=== PATIENT | female | born 1980 | race Caucasian/White ===

== ENCOUNTER → 2017-07-31 13:21 | Outpatient (CLI) | payer BC, SELFPAY ==
[2017-08-06 15:45] LABS: HPV Reflexed? NOT INDICATED
== END ==
PROVIDERS: Visit Provider Obstetrics & Gynecology
DX: Z12.4 Encounter for screening for malignant neoplasm of cervix (principal)
CPT/HCPCS: 88175; G0145

== ENCOUNTER → 2019-11-25 16:07 | Outpatient (CLI) | payer BC, SELFPAY ==
[2019-11-25 18:04] LABS: Thyroid Stim Hormone (TSH) 1.27 uIU/mL (0.358-3.74)
[2019-11-30 17:33] LABS: HPV Reflexed? NOT INDICATED
== END ==
PROVIDERS: Visit Provider Obstetrics & Gynecology
DX: Z12.4 Encounter for screening for malignant neoplasm of cervix (principal); R63.5 Abnormal weight gain
CPT/HCPCS: 36415; 84443; 88175; G0145

== ENCOUNTER → 2020-01-18 14:42 | Outpatient (CLI) | payer BC, SELFPAY ==
--- NOTE | 2020-01-18 14:45 | BI_ITS ---
MAMMOGRAPHY - BILATERAL SCREENING REASON FOR EXAM: Female, 39 years old. Routine annual screening examination. PERTINENT HISTORY: Aunt with breast cancer. TECHNIQUE: Digital bilateral breast fartun (3D mammographic acquisition) in the CC and MLO projections. 2-D mediolateral oblique (MLO) and craniocaudad (CC) views of both breasts were obtained. CAD: Full Field Digital Mammography with Computer Added Detection was performed. COMPARISON: None. Baseline examination. FINDINGS: Breast Composition: The breasts are heterogeneously dense, which may obscure small masses. There are no dominant masses or suspicious calcifications. No other significant abnormalities are identified. BI/SCREEN MAMM (CAD) W/FARTUN BILAT IMPRESSION: Stable bilateral screening mammogram. Yearly follow-up mammogram recommended. (A) ASSESSMENT CATEGORY: Approximately 10% of breast cancers are not detected by mammography. A normal mammogram should not delay biopsy of a clinically suspicious abnormality. [id number] Electronically Signed: Herve Inman, at 15:41 EDT , Service support ,
== END ==
PROVIDERS: Referring Provider Obstetrics & Gynecology; Visit Provider Obstetrics & Gynecology
DX: Z12.31 Encounter for screening mammogram for malignant neoplasm of breast (principal); Z80.3 Family history of malignant neoplasm of breast
CPT/HCPCS: 77063; 77067

== ENCOUNTER 2020-07-22 16:18 | Outpatient (RCR) | payer OTHER, SELFPAY | END 2020-10-04 23:59 | LOC: IMMUN 16:18 | PROVIDERS: Visit Provider Family Medicine | DX: Z23 Encounter for immunization (principal) | CPT/HCPCS: 0001A; 0002A; 91300 ==

== ENCOUNTER → 2021-01-19 10:40 | Outpatient (CLI) | payer OTHER, SELFPAY ==
--- NOTE | 2021-01-19 10:42 | BI_ITS ---
MAMMOGRAPHY - BILATERAL SCREENING REASON FOR EXAM: Female, 40 years old. Routine annual screening examination. PERTINENT HISTORY: Aunt with breast cancer. TECHNIQUE: Digital bilateral breast fartun (3D mammographic acquisition) in the CC and MLO projections. 2-D mediolateral oblique (MLO) and craniocaudad (CC) views of both breasts were obtained. CAD: Full Field Digital Mammography with Computer Added Detection was performed. COMPARISON: Comparison is made with prior study dated 01/18/2020. FINDINGS: Breast Composition: The breasts are heterogeneously dense, which may obscure small masses. There are no dominant masses or suspicious calcifications. No other significant abnormalities are identified. There has been no significant change since the prior study. BI/SCRN MAMM (CAD)W/FARTUN BILAT IMPRESSION: Stable bilateral screening mammogram. Yearly follow-up mammogram recommended. (A) ASSESSMENT CATEGORY: BIRADS Category 1: Negative. A letter regarding these results will be sent to the patient by the facility within 30 days. Approximately 10% of breast cancers are not detected by mammography. A normal mammogram should not delay biopsy of a clinically suspicious abnormality. [id number] Electronically Signed: Herve Inman MD at 12:04 EDT , Service support ,
== END ==
PROVIDERS: Visit Provider Obstetrics & Gynecology
DX: Z12.31 Encounter for screening mammogram for malignant neoplasm of breast (principal)
CPT/HCPCS: 77063; 77067

== ENCOUNTER → 2022-02-02 | Outpatient (CLI) | payer BC, SELFPAY ==
[2022-02-08 16:53] LABS: HPV APTIMA, High Risk Negative
== END | disposition home or self-care (01) ==
LOC: LABSPEC 15:21
PROVIDERS: Visit Provider Obstetrics & Gynecology
DX: Z12.4 Encounter for screening for malignant neoplasm of cervix (principal)
CPT/HCPCS: 87624; 88175; G0145

== ENCOUNTER → 2022-02-09 | Outpatient (CLI) | payer BC, SELFPAY ==
--- NOTE | 2022-02-09 13:57 | BI_ITS ---
MAMMOGRAPHY - BILATERAL SCREENING REASON FOR EXAM: Female, 41 years old. Routine annual screening examination. PERTINENT HISTORY: Aunt with breast cancer. TECHNIQUE: Digital bilateral breast fartun (3D mammographic acquisition) in the CC and MLO projections. 2-D mediolateral oblique (MLO) and craniocaudad (CC) views of both breasts were obtained. CAD: Full Field Digital Mammography with Computer Added Detection was performed. COMPARISON: Comparison is made with prior examination 01/19/2021. FINDINGS: Breast Composition: The breasts are heterogeneously dense, which may obscure small masses. There are no dominant masses or suspicious calcifications. No other significant abnormalities are identified. There has been no significant change since the prior study. BI/SCRN MAMM (CAD)W/FARTUN BILAT IMPRESSION: Stable bilateral screening mammogram. Yearly follow-up mammogram recommended. (A) ASSESSMENT CATEGORY: BIRADS Category 1: Negative. A letter regarding these results will be sent to the patient by the facility within 30 days. Approximately 10% of breast cancers are not detected by mammography. A normal mammogram should not delay biopsy of a clinically suspicious abnormality. [id number] Electronically Signed: Herve Inman MD at 14:52 EDT ,
== END | disposition home or self-care (01) ==
LOC: OPBI 13:55
PROVIDERS: Referring Provider Obstetrics & Gynecology; Visit Provider Obstetrics & Gynecology
DX: Z12.31 Encounter for screening mammogram for malignant neoplasm of breast (principal)
CPT/HCPCS: 77063; 77067

== ENCOUNTER → 2023-09-19 | Outpatient (CLI) | payer BC, SELFPAY ==
[2023-09-19 09:14] LABS: Absolute Lymphocyte Count 0.89 X10^3/uL (0.83-4.51); Absolute Neutrophil Count 2.4 X10^3/uL (2.0-7.7); Basophil# 0.02 X10^3/uL; Basophil% 0.5 % (0-1); Eosinophil# 0.21 X10^3/uL; Eosinophils% 5.3 % (0-5); Hematocrit 43.5 % (37-47); Hemoglobin 14.1 g/dL (12.0-15.0); Lymphocyte # 0.89 X10^3/ul (0.83-4.51); Lymphocyte % 22.3 % (19-41); Mean Corp Hgb Conc 32.4 g/dL (32-36); Mean Corpuscular Hgb 28.2 pg (27.0-32.0); Mean Platelet Vol. 10.5 fl (6.2-12.0); Monocyte# 0.44 X10^3/uL; NRBC Flagged by Analyzer 0 % (0-5); Neutrophil # 2.43 X10^3/uL (2.7-7.7); Neutrophil % 60.6 % (47-70); Platelet Count 193 K/mm3 (150-450); RBC Distribution Width CV 13.1 % (11.6-14.6); RBC Distribution Width SD 41.2 fl (35.1-43.9)
[2023-09-19 09:49] LABS: Hemoglobin A1c 5.1 % (3.8-5.6)
[2023-09-19 09:54] LABS: ALB/GLOB Ratio 1.1 RATIO (0.9-2.4); AST(SGOT) 19 U/L (15-37); Alanine Aminotransfer ALT/SGPT 18 U/L (13-56); Albumin, Serum 3.8 g/dL (3.2-5.0); Alkaline Phosphatase 39 U/L (45-117); Anion Gap 6 (5-15); BUN 15 mg/dL (7-18); BUN/Creat Ratio 16.6 RATIO (10-20); Calcium,Total 8.5 mg/dL (8.5-10.1); Chloride 110 mmol/L (98-107); Cholesterol 142 mg/dL (200); Creatinine, Serum 0.91 mg/dL (0.55-1.02); EST Glomerular Filtration Rate 71 mL/min (>60); Est Glom Filt Rate - Afr Amer 86 mL/min (>60); Globulin 3.4 g/dL (2.2-4.2); Glucose 83 mg/dL (74-106); High Density Lipoprotein 64 mg/dL; Potassium 3.9 mmol/L (3.5-5.1); Protein, Total 7.2 g/dL (6.4-8.2); Sodium Level 138 mmol/L (136-145); Thyroid Stim Hormone (TSH) 1.65 uIU/mL (0.358-3.74); Triglycerides 52 mg/dL; Very Low Density Lipoprotein 10 mg/dL (5-40)
== END | disposition home or self-care (01) ==
LOC: LAB 08:23
PROVIDERS: PCP Internal Medicine; Referring Provider Internal Medicine; Visit Provider Internal Medicine
DX: Z00.00 Encounter for general adult medical examination without abnormal findings (principal); Z13.6 Encounter for screening for cardiovascular disorders; E66.9 Obesity, unspecified
CPT/HCPCS: 36415; 80053; 80061; 83036; 84443; 85025

== ENCOUNTER 2023-12-10 08:37 | Day surgery (SDC) | payer BC, SELFPAY ==
[2023-12-10] VITALS (9 sets, daily range): BP systolic 107–119; BP diastolic 80–86; PULSE 66–88; RESP 16–18; TEMP 36.2–36.8; O2SAT 96–100; BMI 29.2
[2023-12-10] MEDS: Lactated Ringers 1,000 ML 15 ML IV (09:10)
--- NOTE | 2023-12-10 09:13 | PRE.ANES_ITS ---
ASA Classification* ASA Classification ASA Classification: 2 Assessment & Plan Anesthesia* Anesthesia Assessment Anesthesia Assessment: Discussed sedation and/or anesthesia options, risks, benefits, and alternatives with patient/parents/legal guardian/POA. Questions invited. The patient/parents/legal guardian/POA seems to understand and agrees to proceed with anesthesia plan. Reviewed the physical assessment, medical history, allergy history and patient home medications list prior to surgery/procedure/anesthetic and documented any changes. Performed airway and anesthesia risk assessments. Anesthesia Type Anesthesia Type: MAC (see written pre anesthesia record for full assessment) Anesthesia Focused Assessment* Temperature: 98.2 F Pulse Rate: 71 Blood Pressure: 119/83 Respiratory Rate: 16 Pulse Ox: 100 Airway Assessment Mouth opens: >3 cm Mallampati Score: II Focused Labs Anesthesia Preop lab: CBC WBC 4.0 K/mm3 (4.4-11.0) L 09/19/23 08:30 RBC 5.00 M/mm3 (4.2-5.4) 09/19/23 08:30 Hgb 14.1 g/dL (12.0-15.0) 09/19/23 08:30 Hct 43.5 % (37-47) 09/19/23 08:30 Plt Count 193 K/mm3 (150-450) 09/19/23 08:30 CHEMISTRY Potassium 3.9 mmol/L (3.5-5.1) 09/19/23 08:30 Sodium 138 mmol/L (136-145) 09/19/23 08:30 BUN 15 mg/dL (7-18) 09/19/23 08:30 Creatinine 0.91 mg/dL (0.55-1.02) 09/19/23 08:30 Glucose 83 mg/dL (74-106) 09/19/23 08:30 TSH 1.65 uIU/mL (0.358-3.74) 09/19/23 08:30 COAG Pre-Assessment Diagnosis/Proposed Procedure Planned Operative Procedure(s): COLONSCOPY-OA Anesthesia History 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 When Was Last Pacemaker Check QUESTION #4 FULL TEXT: You/Your Family Experience fever (hyperthermia) with Anesthesia Last Oral Intake Last Oral intake: Last Oral Intake NPO since 05:45 12/10/23 09:08 Meds taken in AM with sips of water? Meds patient instructed to take am of surgery PONV PONV - cable installer repairer: PONV - cable installer repairer Female Yes 12/04/23 11:10 HX of Motion Sickness No 12/04/23 11:10 HX of N/V After Surgery No 12/04/23 11:10 Non-Smoker Yes 12/04/23 11:10 Duration of Surgery greater No 12/04/23 11:10 than 60 minutes Number of Risk Factors 2 12/04/23 11:10 PONV Score Moderate Risk 12/04/23 11:10 Height & Weight Height & Weight: Anesthesia: Height & Weight Height 6 ft 12/10/23 09:08 Weight: 97.976 kg 12/10/23 09:08 Body Mass Index (BMI) 29.2 12/10/23 09:08 Respiratory Assessment Respiratory Assessment - cable installer repairer: Respiratory Tract Infection Hx - cable installer repairer Hx Respiratory Tract Infection No 12/04/23 11:10 STOP Sleep Apnea STOP Sleep Apnea - cable installer repairer: STOP Sleep Apnea - cable installer repairer Hx Hypertension No 12/04/23 11:10 Hx Sleep Apnea No 12/04/23 11:10 CPAP BIPAP Do you snore loudly (louder No 12/04/23 11:10 than talking or can be heard Do you often feel tired/ No 12/04/23 11:10 fatigued/ sleepy during daytime? Has anyone observed you stop No 12/04/23 11:10 breathing during sleep? STOP Results Negative 12/04/23 11:10 QUESTION #5 FULL TEXT : Do you snore loudly (louder than talking or can be heard through closed doors)? 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 Specify any problems Hx of Preganancy in last 3 No 12/04/23 11:10 Months Nurse Filling Out Transfusion VCHRISTIN 12/04/23 11:10 & Questions: Date: 12/04/23 12/04/23 11:10 Time: 11:12 12/04/23 11:10 Patient unable to answer at this time (ie. confused, unrespo /Reproduction History /Reproductive History - cable installer repairer: /Reproductive Hx- cable installer repairer Hx Now No 12/04/23 11:10 Gestational Age (in weeks): EDC: Hx Hx Para Hx Section SAB No 12/04/23 11:10 Active Medications Active Medications: Current Medications Generic Name Dose Route Start Last Admin Trade Name Freq PRN Reason Stop Dose Admin Lactated Ringer's 1,000 mls @ 15 mls/hr 12/10/23 08:45 12/10/23 09:10 IV 15 mls/hr .Q48H JERMAINE Administration PFSH Medical History Wears glasses Wears contact lenses Alcohol use Non-smoker History of edema Home Medications ?Medication ?Instructions ?Recorded ?Last Taken ?Type psyllium husk 3.4 gram/5.4 gram 1 tbsp PO DAILY 10/28/23 Unknown History oral powder (Metamucil) Allergy/AdvReac Type Severity Reaction Status Date / Time No Known Allergies Allergy Verified 12/10/23 08:59 Family History Grandmother Osteoporosis Depression Grandfather Hypertension CVA (cerebral vascular accident) Aunt Breast cancer Parkinson's disease Mother Osteoporosis Sister defect transposition of great vessels Grandmother Mental disorder bipolar Father Cancer prostate Son Bicuspid aortic valve Surgical History History of hymenectomy Social History adopted: No household members: family number of children: 2 current occupational status: unemployed 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 current occupational exposures/hazards: No pets and animals: Yes leisure activities: music, games, reading and volunteer work sexually active: Yes Smoking Status: Never smoker Electronic Cigarette Use: not used second hand exposure: No alcohol intake: current alcohol intake frequency: a few times a week Alcohol type: beer and wine substance use type: does not use well-balanced diet: daily or most days caffeine: Yes Type: coffee eating out: 1-3 times/week during the past year weight has: remained stable what type of physical activity do you participate in: walking frequency: daily duration: 30-45 minutes/day seatbelt use: always do you feel safe at home: Yes Review of Systems (Anesthesia) ROS Narrative System reviewed and no additional complaints, except as documented.
[2023-12-10 09:22] LABS: Internal QC Validated? YES +Cl - CLEAR BKGD; Pregnancy, Serum, hCG Quali. NEGATIVE Negative
--- NOTE | 2023-12-10 09:29 | H&P.OPEN ---
HPI - General HPI Narrative VINCENT BUSBY, is a 43 F who presents for screening colonoscopy. She has never had a colonoscopy in the past. She denies abdominal pain or blood in stool. She denies family history of colon cancer. [facility] Medical History Wears glasses Wears contact lenses Alcohol use Non-smoker History of edema Home Medications ?Medication ?Instructions ?Recorded ?Last Taken ?Type psyllium husk 3.4 gram/5.4 gram 1 tbsp PO DAILY 10/28/23 Unknown History oral powder (Metamucil) Allergy/AdvReac Type Severity Reaction Status Date / Time No Known Allergies Allergy Verified 12/10/23 08:59 Family History Grandmother Osteoporosis Depression Grandfather Hypertension CVA (cerebral vascular accident) Aunt Breast cancer Parkinson's disease Mother Osteoporosis Sister defect transposition of great vessels Grandmother Mental disorder bipolar Father Cancer prostate Son Bicuspid aortic valve Surgical History History of hymenectomy Social History adopted: No household members: family number of children: 2 current occupational status: unemployed 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 current occupational exposures/hazards: No pets and animals: Yes leisure activities: music, games, reading and volunteer work sexually active: Yes Smoking Status: Never smoker Electronic Cigarette Use: not used second hand exposure: No alcohol intake: current alcohol intake frequency: a few times a week Alcohol type: beer and wine substance use type: does not use well-balanced diet: daily or most days caffeine: Yes Type: coffee eating out: 1-3 times/week during the past year weight has: remained stable what type of physical activity do you participate in: walking frequency: daily duration: 30-45 minutes/day seatbelt use: always do you feel safe at home: Yes Past Medical/Surgical History Planned Operation Planned Operative Procedure(s): COLONSCOPY-OA Previous Hospitalizations/Surgeries HX Hospitalizations: No Any Problems With Anesthesia: No You/Your Family Experience Fever (Hyperthermia) With Anes: No Cholinesterase deficiency: No Cardiovascular Hx Hypertension: No Respiratory Hx Sleep Apnea: No Hx Respiratory Tract Infection/Cold (presently): No Do You Snore Loudly (louder than talking or can be heard): No Do You Often Feel Tired/ Fatigued/ Sleepy Dring Daytime?: No Has Anyone Observed You Stop Breathing During Sleep?: No Result (for STOP score): Negative Smoking Status: Never smoker Neurological Does patient have nerve stimulator: No Reproduction : No Miscellaneous Recent Exposure to Contagious Disease: No Allergies No Known Allergies Allergy (Verified 12/10/23 08:59) Discharge Is Pt Admitted From a Correction, or a Shelter: No After D/C, Where Do you Plan to Go: Return Home Vital Signs Vital Signs Vital Signs: 12/10/23 09:08 12/10/23 09:08 12/10/23 09:13 Temperature 98.2 F 98.2 F Temperature Source Temporal Pulse Rate 71 71 Respiratory Rate 16 16 Respiratory Pattern Normal Blood Pressure 119/83 H 119/83 H Blood Pressure Mean 95 Blood Pressure Source Monitor Blood Pressure Position Semi-Fowlers Blood Pressure Location Left Arm Pulse Ox 100 100 Oxygen Delivery Method Room Air Weight Weight: 216 lb Body Mass Index (BMI) 29.2 Physical Exam Const alert and oriented x3 HEENT normocephalic Eyes PERRL Resp normal respiratory effort and normal air movement Cardio regular rate and regular rhythm GI soft to palpation, non-tender and non-distended Extremity normal to inspection Assessment & Plan Assessment/Plan (1) Encounter for screening for malignant neoplasm of colon: PLAN: I explained endoscopy in detail to the patient. I explained the risks including but not limited to stroke or heart attack with anesthesia, perforation of the GI tract, bleeding, infection. I explained that any of these could necessitate further emergency surgery. The patient understands and all questions were answered sufficiently. The patient wishes to proceed with procedure. Rickey De Guzman MD Pager: [facility] [address] [place] [address], [address] [place] [address] Office: Surgery Risks - Colonoscopy Risks Include but are not Limited To: Risks include but are not limited to: Bleeding, perforation requiring further surgery, inability to complete colonoscopy requiring barium enema.
--- NOTE | 2023-12-10 10:12 | PCM.POST.ANE ---
Anesthesia: Postop Eval I Current Vital Signs Temperature: 97.1 F Pulse Rate: 86 Blood Pressure: 108/80 Respiratory Rate: 18 Pulse Ox: 96 Assessment Airway patent: Yes Spontaneous unlabored respirations: Yes nausea: No Vomiting: No Anesthesia Complication: No Fluid Hydration Crystalloid volume administer (ml): 500 Total IV fluid infused: 500 Progress Note Anesthesia document: Postop Eval 1 completed: Yes
--- NOTE | 2023-12-10 10:14 | OP.COLON_ITS ---
Patient Name: Maureen Moran Procedure Date: 12/10/2023 9:29 AM Date of : 1980 Age: 43 Procedure: Colonoscopy Indications: Screening for colorectal malignant neoplasm Providers: Rickey De Guzman MD Medicines: Propofol per Anesthesia Patient Profile: This is a 43 year old female. Refer to note in patient chart for documentation of history and physical. Last Colonoscopy: none. The patient's first colonoscopy is today. Complications: No immediate complications. Procedure: Pre-Anesthesia Assessment: - Prior to the procedure, a History and Physical was performed, and patient medications and allergies were reviewed. The patient's tolerance of previous anesthesia was also reviewed. The risks and benefits of the procedure and the sedation options and risks were discussed with the patient. All questions were answered, and informed consent was obtained. Prior Anticoagulants: The patient has taken no anticoagulant or antiplatelet agents. After reviewing the risks and benefits, the patient was deemed in satisfactory condition to undergo the procedure. After I obtained informed consent, the scope was passed under direct vision. Throughout the procedure, the patient's blood pressure, pulse, and oxygen saturations were monitored continuously. The colonoscope was introduced through the anus and advanced to the hepatic flexure. The patient tolerated the procedure well. The quality of the bowel preparation was good. The ileocecal valve, appendiceal orifice, and rectum were photographed. The colonoscopy was extremely difficult due to a redundant colon. Successful completion of the procedure was aided by applying abdominal pressure. Scope In: 9:37:46 AM Scope Out: 10:05:19 AM Total Procedure Duration Time 0 hours 27 minutes 33 seconds Findings: The entire examined colon appeared normal on direct and retroflexion views. Impression: - The entire examined colon is normal on direct and retroflexion views. - No specimens collected. Recommendation: - Discharge patient to home. - Resume previous diet. - Continue present medications. - Repeat colonoscopy at appointment to be scheduled because the examination was incomplete. - Refer to a bus person dishwasher at appointment to be scheduled. Procedure Code(s): --- Professional --- 92676, 53, Colonoscopy, flexible; diagnostic, including collection of specimen(s) by brushing or washing, when performed (separate procedure) Diagnosis Code(s): --- Professional --- Z12.11, Encounter for screening for malignant neoplasm of colon CPT copyright 2021 [employer]. All rights reserved. The codes documented in this report are preliminary and upon vice president marketing & development review may be revised to meet current compliance requirements. Rickey De Guzman MD 12/10/2023 10:14:15 AM This report has been signed electronically. Number of Addenda: 0 Note Initiated On: 12/10/2023 9:29 AM
--- NOTE | 2023-12-10 10:15 | OP.CCLET_ITS ---
12/10/2023 Layne Diaz Md Re : Colonoscopy procedure for Maureen Moran Dear Joe This procedure was performed on Sunday, December 10, 2023. My impressions and recommendations are as follows: Impressions : - The entire examined colon is normal on direct and retroflexion views. - No specimens collected. Recommendations : - Discharge patient to home. - Resume previous diet. - Continue present medications. - Repeat colonoscopy at appointment to be scheduled because the examination was incomplete. - Refer to a bead machine operator at appointment to be scheduled. My findings are described in the full procedure note, which is enclosed. If I can be of further assistance, please feel free to contact me at Doctor phone number(s): , Work: . Sincerely, Rickey De Guzman MD 12/10/2023 10:14:15 AM This report has been signed electronically.
--- NOTE | 2023-12-10 12:13 | POSTOPAN2_ITS ---
Anesthesia Postop Eval I Sum Postop Eval Completion status Anesthesia document: Postop Eval 1 completed: Yes Anesthesia Postop Eval I Summary Anesthesia Postop Eval I Summary: Anesthesia Postop Eval I: Assessment Summary Airway patent Yes 12/10/23 10:13 DONOR CENTER TECHNICIAN.CSIR Spontaneous unlabored Yes 12/10/23 10:13 DONOR CENTER TECHNICIAN.CSIR respirations Mental status nausea No 12/10/23 10:13 DONOR CENTER TECHNICIAN.CSIR Vomiting No 12/10/23 10:13 DONOR CENTER TECHNICIAN.CSIR Anesthesia Postop Eval I: Fluid Summary Crystalloid volume administer 500 12/10/23 10:13 DONOR CENTER TECHNICIAN.CSIR (ml) Colloids volume administered ( ml) Blood Product volume administered (ml) Total IV fluid infused 500 12/10/23 10:13 DONOR CENTER TECHNICIAN.CSIR Anesthesia Postop Eval I: Summary Notes Anesthesia Complication No 12/10/23 10:13 DONOR CENTER TECHNICIAN.CSIR Anesthesia Complication Comment: Post-operative progress note Anesthesia: Postop Eval II Evaluation Mental status: Awake Pain Level: 0 nausea: No Vomiting: No
--- NOTE | 2023-12-10 12:13 | PCM.POSTANE2 ---
Anesthesia Postop Eval I Sum Postop Eval Completion status Anesthesia document: Postop Eval 1 completed: Yes Anesthesia Postop Eval I Summary Anesthesia Postop Eval I Summary: Anesthesia Postop Eval I: Assessment Summary Airway patent Yes 12/10/23 10:13 INVENTORY REPRESENTATIVE.CSIR Spontaneous unlabored Yes 12/10/23 10:13 INVENTORY REPRESENTATIVE.CSIR respirations Mental status nausea No 12/10/23 10:13 INVENTORY REPRESENTATIVE.CSIR Vomiting No 12/10/23 10:13 INVENTORY REPRESENTATIVE.CSIR Anesthesia Postop Eval I: Fluid Summary Crystalloid volume administer 500 12/10/23 10:13 INVENTORY REPRESENTATIVE.CSIR (ml) Colloids volume administered ( ml) Blood Product volume administered (ml) Total IV fluid infused 500 12/10/23 10:13 INVENTORY REPRESENTATIVE.CSIR Anesthesia Postop Eval I: Summary Notes Anesthesia Complication No 12/10/23 10:13 INVENTORY REPRESENTATIVE.CSIR Anesthesia Complication Comment: Post-operative progress note Anesthesia: Postop Eval II Evaluation Mental status: Awake Pain Level: 0 nausea: No Vomiting: No
== END 2023-12-10 11:02 | disposition home or self-care (01) ==
LOC: EN 08:38 → AC 08:39
PROVIDERS: Anesthesiology; PCP Internal Medicine; Referring Provider Internal Medicine; Visit Provider Surgery
PROC: 0DJD8ZZ Inspection of Lower Intestinal Tract, Via Natural or Artificial Opening Endoscopic (ICD-10-PCS; CPT 45378; principal; 2023-12-10 09:40)
DX: Z12.11 Encounter for screening for malignant neoplasm of colon (principal)
CPT/HCPCS: 45378; 84703; J7120; J2405

== ENCOUNTER → 2024-06-04 | Outpatient (CLI) | payer OTHER, SELFPAY ==
[2024-06-04 12:20] LABS: Absolute Lymphocyte Count 0.51 X10^3/uL (0.83-4.51); Absolute Neutrophil Count 3.4 X10^3/uL (2.0-7.7); Basophil# 0.01 X10^3/uL; Basophil% 0.2 % (0-1); Eosinophil# 0.15 X10^3/uL; Eosinophils% 3.3 % (0-5); Hematocrit 42.8 % (37-47); Hemoglobin 13.7 g/dL (12.0-15.0); Lymphocyte # 0.51 X10^3/ul (0.83-4.51); Lymphocyte % 11.3 % (19-41); Mean Corpuscular Hgb 28.5 pg (27.0-32.0); Mean Corpuscular Volume 89.2 fL (81-99); Mean Platelet Vol. 10.6 fl (6.2-12.0); Monocyte# 0.44 X10^3/uL; Monocyte% 9.8 % (0-10); NRBC Flagged by Analyzer 0 % (0-5); Neutrophil # 3.38 X10^3/uL (2.7-7.7); Neutrophil % 75.2 % (47-70); POSITIVE DIFFERENTIAL YES; Platelet Count 190 K/mm3 (150-450); RBC Distribution Width CV 13.4 % (11.6-14.6); RBC Distribution Width SD 43.8 fl (35.1-43.9); White Blood Count 4.5 K/mm3 (4.4-11.0)
[2024-06-04 12:39] LABS: Vitamin D,25 Hydroxy 15.5 ng/mL
[2024-06-04 12:53] LABS: AST(SGOT) 16 U/L (15-37); Alanine Aminotransfer ALT/SGPT 22 U/L (13-56); Albumin, Serum 3.5 g/dL (3.2-5.0); Alkaline Phosphatase 35 U/L (45-117); Anion Gap 6 (5-15); BUN 15 mg/dL (7-18); BUN/Creat Ratio 16.9 RATIO (10-20); Calcium,Total 8.7 mg/dL (8.5-10.1); Chloride 108 mmol/L (98-107); Creatinine, Serum 0.89 mg/dL (0.55-1.02); EST Glomerular Filtration Rate 73 mL/min (>60); Est Glom Filt Rate - Afr Amer 88 mL/min (>60); Estradiol 90.4 pg/mL; Globulin 3.6 g/dL (2.2-4.2); Glucose 79 mg/dL (74-106); Potassium 4.4 mmol/L (3.5-5.1); Protein, Total 7.1 g/dL (6.4-8.2); Sodium Level 139 mmol/L (136-145)
[2024-06-09 01:06] LABS: Estrogen, Total, Serum 275 pg/mL (.)
== END | disposition home or self-care (01) ==
LOC: BIMLAB 09:15
PROVIDERS: PCP Internal Medicine; Referring Provider Internal Medicine; Visit Provider Internal Medicine
DX: R23.2 Flushing (principal); F41.9 Anxiety disorder, unspecified; F32.A Depression, unspecified
CPT/HCPCS: 36415; 80053; 82306; 82670; 82672; 84443; 85025

== ENCOUNTER 2024-11-25 11:28 | Day surgery (SDC) | payer OTHER, BC, SELFPAY ==
--- NOTE | 2024-11-25 11:42 | PCM.PRE.AN2 ---
ASA Classification* ASA Classification ASA Classification: 1 Assessment & Plan Anesthesia* Anesthesia Assessment Anesthesia Assessment: Discussed sedation and/or anesthesia options, risks, benefits, and alternatives with patient/parents/legal guardian/POA. Questions invited. The patient/parents/legal guardian/POA seems to understand and agrees to proceed with anesthesia plan. Reviewed the physical assessment, medical history, allergy history and patient home medications list prior to surgery/procedure/anesthetic and documented any changes. Performed airway and anesthesia risk assessments. Anesthesia Type Anesthesia Type: MAC History Source History Obtained from:: Patient Anesthesia Focused Assessment* Oxygen Delivery Method: Room Air Airway Assessment Mouth opens: >3 cm Mallampati Score: I Teeth Condition: Intact Neck Range of motion (ROM): Full ROM Labs Anesthesia Preop lab: CBC WBC 4.5 K/mm3 (4.4-11.0) 06/04/24 09:16 06/04/24 RBC 4.80 M/mm3 (4.2-5.4) 06/04/24 09:16 06/04/24 Hgb 13.7 g/dL (12.0-15.0) 06/04/24 09:16 06/04/24 Hct 42.8 % (37-47) 06/04/24 09:16 06/04/24 Plt Count 190 K/mm3 (150-450) 06/04/24 09:16 06/04/24 CHEMISTRY Potassium 4.4 mmol/L (3.5-5.1) 06/04/24 09:16 06/04/24 Sodium 139 mmol/L (136-145) 06/04/24 09:16 06/04/24 BUN 15 mg/dL (7-18) 06/04/24 09:16 06/04/24 Creatinine 0.89 mg/dL (0.55-1.02) 06/04/24 09:16 06/04/24 Glucose 79 mg/dL (74-106) 06/04/24 09:16 06/04/24 TSH 1.260 uIU/mL (0.358-3.740) 06/04/24 09:16 06/04/24 COAG Pre-Assessment Diagnosis/Proposed Procedure Planned Operative Procedure(s): COLONOSCOPY Anesthesia History 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 When Was Last Pacemaker Check QUESTION #4 FULL TEXT: You/Your Family Experience fever (hyperthermia) with Anesthesia Last Oral Intake Last Oral intake: Last Oral Intake NPO since Meds taken in AM with sips of water? Meds patient instructed to take am of surgery PONV PONV - grounds manager: PONV - grounds manager Female Yes 11/20/24 10:40 HX of Motion Sickness No 11/20/24 10:40 HX of N/V After Surgery No 11/20/24 10:40 Non-Smoker Yes 11/20/24 10:40 Duration of Surgery greater No 11/20/24 10:40 than 60 minutes Number of Risk Factors 2 11/20/24 10:40 PONV Score Moderate Risk 11/20/24 10:40 Height & Weight Height & Weight: Anesthesia: Height & Weight Height 6 ft 06/04/24 08:24 Respiratory Assessment Respiratory Assessment - grounds manager: Respiratory Tract Infection Hx - grounds manager Hx Respiratory Tract Infection No 11/20/24 10:40 STOP Sleep Apnea STOP Sleep Apnea - grounds manager: STOP Sleep Apnea - grounds manager Hx Hypertension No 11/20/24 10:40 Hx Sleep Apnea No 11/20/24 10:40 CPAP BIPAP Do you snore loudly (louder No 11/20/24 10:40 than talking or can be heard Do you often feel tired/ No 11/20/24 10:40 fatigued/ sleepy during daytime? Has anyone observed you stop No 11/20/24 10:40 breathing during sleep? STOP Results Negative 11/20/24 10:40 QUESTION #5 FULL TEXT : Do you snore loudly (louder than talking or can be heard through closed doors)? 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 Specify any problems Hx of Preganancy in last 3 No 11/20/24 10:40 Months Nurse Filling Out Transfusion [id number] 11/20/24 10:40 & Questions: Date: 11/20/24 11/20/24 10:40 Time: 10:42 11/20/24 10:40 Patient unable to answer at this time (ie. confused, unrespo /Reproduction History /Reproductive History - grounds manager: /Reproductive Hx- grounds manager Hx Now No 11/20/24 10:40 Gestational Age (in weeks): EDC: Hx Hx Para Hx Section SAB No 11/20/24 10:40 Active Medications Active Medications: Current Medications Generic Name Dose Route Start Last Admin Trade Name Freq PRN Reason Stop Dose Admin Lactated Ringer's 1,000 mls @ 15 mls/hr 11/25/24 11:45 IV .Q48H JERMAINE PFSH Medical History (Updated 11/20/24 @ 10:46 by Carlton Valentine) Colonoscopy planned Depression Anxiety Wears glasses Wears contact lenses Alcohol use Non-smoker History of edema Home Medications ?Medication ?Instructions ?Recorded ?Last Taken ?Type sertraline 100 mg tablet 100 mg PO QDAY #90 tabs 09/10/24 Unknown Rx cholecalciferol (vitamin D3) 50 50 mcg PO DAILY 11/20/24 Unknown History mcg (2,000 unit) tablet (D3 DOTS) magnesium 200 mg tablet 200 mg PO DAILY 11/20/24 Unknown History Allergy/AdvReac Type Severity Reaction Status Date / Time No Known Allergies Allergy Verified 11/20/24 10:37 Family History Grandmother Osteoporosis Depression Grandfather Hypertension CVA (cerebral vascular accident) Aunt Breast cancer Parkinson's disease Mother Osteoporosis Sister defect transposition of great vessels Grandmother Mental disorder bipolar Father Cancer prostate Son Bicuspid aortic valve Surgical History H/O breast biopsy History of hymenectomy Social History (Updated 06/04/24 @ 08:[address] 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 current occupational exposures/hazards: No pets and animals: Yes leisure activities: music, games, reading and volunteer work sexually active: Yes Smoking Status: Never smoker Electronic Cigarette Use: not used second hand exposure: No alcohol intake: current alcohol intake frequency: a few times a week Alcohol type: beer and wine substance use type: does not use well-balanced diet: daily or most days caffeine: Yes Type: coffee eating out: 1-3 times/week during the past year weight has: remained stable what type of physical activity do you participate in: walking frequency: daily duration: 30-45 minutes/day seatbelt use: always do you feel safe at home: Yes Review of Systems (Anesthesia) ROS Narrative System reviewed and no additional complaints, except as documented.
[2024-11-25 11:48] VITALS: BP 126/92; PULSE 73; RESP 16; TEMP 37.1; O2SAT 100; BMI 28.4
[2024-11-25] MEDS: Lactated Ringers 1,000 ML 15 ML IV (11:54)
[2024-11-25 11:58] LABS: Internal QC Validated? YES +Cl - CLEAR BKGD; Pregnancy, Urine Negative Negative; Record Kit Lot#,Urine Preg 0000962302
--- NOTE | 2024-11-25 12:34 | PCM.HP.STD ---
HPI - General General Date of Admission: 11/25/24 Date of Service: 11/25/24 Chief Complaint: Screening colonoscopy HPI Narrative VINCENT BUSBY, is a 44 F who presents with the Chief Complaint: incomplete colonoscopy Details: VINCENT BUSBY is a 43 F who presents to the office today for establishment with [facility]. Patient had screening colonoscopy 12.10.[address] De Guzman but was incomplete due to tortuous colon. She is here today for consultation for a colonoscopy with Dr. Rayo. She gets occasional sharp gas pain in the periumbilical area. She still has her appendix. She started taking Metamucil which has been helpful to some of the gas pain. She denies diarrhea, constipation, weight loss, fevers, and melena . [facility] Medical History Colonoscopy planned Depression Anxiety Wears glasses Wears contact lenses Alcohol use Non-smoker History of edema Home Medications ?Medication ?Instructions ?Recorded ?Last Taken ?Type sertraline 100 mg tablet 100 mg PO QDAY #90 tabs 09/10/24 Unknown Rx cholecalciferol (vitamin D3) 50 50 mcg PO DAILY 11/20/24 Unknown History mcg (2,000 unit) tablet (D3 DOTS) magnesium 200 mg tablet 200 mg PO DAILY 11/20/24 Unknown History Allergy/AdvReac Type Severity Reaction Status Date / Time No Known Allergies Allergy Verified 11/20/24 10:37 Family History Grandmother Osteoporosis Depression Grandfather Hypertension CVA (cerebral vascular accident) Aunt Breast cancer Parkinson's disease Mother Osteoporosis Sister defect transposition of great vessels Grandmother Mental disorder bipolar Father Cancer prostate Son Bicuspid aortic valve Surgical History H/O breast biopsy History of hymenectomy Social History adopted: No household members: family number of children: 2 current occupational status: employed 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 current occupational exposures/hazards: No pets and animals: Yes leisure activities: music, games, reading and volunteer work sexually active: Yes Smoking Status: Never smoker Electronic Cigarette Use: not used second hand exposure: No alcohol intake: current alcohol intake frequency: a few times a week Alcohol type: beer and wine substance use type: does not use well-balanced diet: daily or most days caffeine: Yes Type: coffee eating out: 1-3 times/week during the past year weight has: remained stable what type of physical activity do you participate in: walking frequency: daily duration: 30-45 minutes/day seatbelt use: always do you feel safe at home: Yes ROS Constitutional Constitutional: Denies fatigue, fever(s), poor appetite, weight gain or weight loss Gastrointestinal Gastrointestinal: Denies belching, bloating, change in bowel habits, change in stool character, chewing difficulty, coffee ground emesis, constipation, cramping, diarrhea, dyspepsia, dysphagia, early satiety, excessive flatus, fecal incontinence, heartburn, hematemesis, hematochezia, hemorrhoids, loose stools, melena, nausea, odynophagia, rectal bleeding, tenesmus, vomiting or weight changes Vital Signs Vital Signs Vital Signs: 11/25/24 11:43 11/25/24 11:48 11/25/24 11:48 Temperature 98.8 F Temperature Source Temporal Pulse Rate 73 Respiratory Rate 16 Respiratory Pattern Normal Blood Pressure 126/92 H Blood Pressure Mean 103 Blood Pressure Source Monitor Blood Pressure Position Semi-Fowlers Blood Pressure Location Left Arm Pulse Ox 100 Oxygen Delivery Method Room Air Room Air Weight Weight: 209 lb 7.026 oz Body Mass Index (BMI) 28.4 Physical Exam Const alert and oriented x3 HEENT normocephalic Eyes PERRL Resp normal respiratory effort and normal air movement Cardio regular rate and regular rhythm GI soft to palpation, non-tender and non-distended Extremity normal to inspection Results Lab / Micro Data Labs: Laboratory Results - last 24 hr 11/25/24 11:35: Urine Test Negative Assessment & Plan Assessment/Plan (1) Encounter for screening for malignant neoplasm of colon: PLAN: I explained endoscopy in detail to the patient. I explained the risks including but not limited to stroke or heart attack with anesthesia, perforation of the GI tract, bleeding, infection. I explained that any of these could necessitate further emergency surgery. The patient understands and all questions were answered sufficiently. The patient wishes to proceed with procedure.
--- NOTE | 2024-11-25 14:22 | OP.PROVAT_ITS ---
11/25/2024 Layne Diaz Md Re : Colonoscopy procedure for Maureen Moran Dear Joe This procedure was performed on Monday, November 25, 2024. My impressions and recommendations are as follows: Impressions : - Redundant colon. - The examination was otherwise normal on direct and retroflexion views. - No specimens collected. Recommendations : - Discharge patient to home. - Resume previous diet. - Continue present medications. - Repeat colonoscopy in 10 years for screening purposes. My findings are described in the full procedure note, which is enclosed. If I can be of further assistance, please feel free to contact me at . Sincerely, Parth Rayo, 11/25/2024 2:21:48 PM This report has been signed electronically.
--- NOTE | 2024-11-25 14:22 | OP.COLON_ITS ---
Patient Name: Maureen Moran Procedure Date: 11/25/2024 12:36 PM Date of : 1980 Age: 44 Procedure: Colonoscopy Indications: Screening for colorectal malignant neoplasm Providers: Parth Rayo DO Referring MD: Layne Diaz Md Medicines: Monitored Anesthesia Care Patient Profile: This is a 44 year old female. Refer to note in patient chart for documentation of history and physical. Last Colonoscopy: Last Colonoscopy: 1 year ago. Complications: No immediate complications. Procedure: Pre-Anesthesia Assessment: - Prior to the procedure, a History and Physical was performed, and patient medications and allergies were reviewed. The patient is competent. The risks and benefits of the procedure and the sedation options and risks were discussed with the patient. All questions were answered and informed consent was obtained. Patient identification and proposed procedure were verified by the physician in the pre-procedure area. Mental Status Examination: alert and oriented. Airway Examination: normal oropharyngeal airway and neck mobility. Respiratory Examination: clear to auscultation. CV Examination: normal. Prophylactic Antibiotics: The patient does not require prophylactic antibiotics. Prior Anticoagulants: The patient has taken no anticoagulant or antiplatelet agents except for NSAID medication. ASA Grade Assessment: II - A patient with mild systemic disease. After reviewing the risks and benefits, the patient was deemed in satisfactory condition to undergo the procedure. The anesthesia plan was to use monitored anesthesia care (MAC). Immediately prior to administration of medications, the patient was re-assessed for adequacy to receive sedatives. The heart rate, respiratory rate, oxygen saturations, blood pressure, adequacy of pulmonary ventilation, and response to care were monitored throughout the procedure. The physical status of the patient was re-assessed after the procedure. After I obtained informed consent, the scope was passed under direct vision. Throughout the procedure, the patient's blood pressure, pulse, and oxygen saturations were monitored continuously. The colonoscope was introduced through the anus and advanced to the cecum, identified by appendiceal orifice and ileocecal valve. The colonoscopy was performed without difficulty. The patient tolerated the procedure well. The quality of the bowel preparation was adequate. Scope In: 12:50:17 PM Scope Withdrawal Time 0 hours 7 minutes 39 seconds Scope Out: 2:16:42 PM Total Procedure Duration Time 1 hour 26 minutes 25 seconds Findings: The perianal and digital rectal examinations were normal. The sigmoid colon, splenic flexure and hepatic flexure were significantly redundant. Advancing the scope required withdrawing the scope and replacing with the adult endoscope. The exam was otherwise without abnormality on direct and retroflexion views. Impression: - Redundant colon. - The examination was otherwise normal on direct and retroflexion views. - No specimens collected. Recommendation: - Discharge patient to home. - Resume previous diet. - Continue present medications. - Repeat colonoscopy in 10 years for screening purposes. Procedure Code(s): --- Professional --- 00373, Colonoscopy, flexible; diagnostic, including collection of specimen(s) by brushing or washing, when performed (separate procedure) CPT copyright 2021 [employer]. All rights reserved. The codes documented in this report are preliminary and upon case management assistant review may be revised to meet current compliance requirements. Parth Rayo DO 11/25/2024 2:21:48 PM This report has been signed electronically. Number of Addenda: 0 Note Initiated On: 11/25/2024 12:36 PM
[2024-11-25 14:25] VITALS: BP 102/59; BP 126/92; PULSE 58; RESP 16; TEMP 36.6; O2SAT 100
[2024-11-25 14:30] VITALS: BP 112/79; BP 126/92; PULSE 54; RESP 16; O2SAT 100
--- NOTE | 2024-11-25 14:32 | PCM.POSTANE2 ---
Anesthesia Postop Eval I Sum Anesthesia Postop Eval I Summary Anesthesia Postop Eval I Summary: Anesthesia Postop Eval I: Assessment Summary Airway patent Spontaneous unlabored respirations Mental status nausea Vomiting Anesthesia Postop Eval I: Fluid Summary Crystalloid volume administer (ml) Colloids volume administered ( ml) Blood Product volume administered (ml) Total IV fluid infused Anesthesia Postop Eval I: Summary Notes Anesthesia Complication Anesthesia Complication Comment: Post-operative progress note Anesthesia: Postop Eval II Evaluation Mental status: Awake and Calm Pain Level: 0 nausea: No Vomiting: No Progress Note Post-operative progress note: Tolerated well. Complications Anesthesia Complication: No
--- NOTE | 2024-11-25 14:33 | PCM.POST.ANE ---
Anesthesia: Postop Eval I Current Vital Signs Temperature: 97.9 F Pulse Rate: 62 Blood Pressure: 102/59 Respiratory Rate: 16 Pulse Ox: 100 Oxygen Delivery Method: Room Air Assessment Airway patent: Yes Spontaneous unlabored respirations: Yes Mental status: Awake and Calm nausea: No Vomiting: No Anesthesia Complication: No Fluid Hydration Crystalloid volume administer (ml): 900 Total IV fluid infused: 900 Progress Note Anesthesia document: Postop Eval 1 completed: Yes
[2024-11-25 14:34] VITALS: BP 102/59; PULSE 62; RESP 16; TEMP 36.6; O2SAT 100
[2024-11-25 14:35] VITALS: BP 116/77; BP 126/92; PULSE 55; RESP 16; TEMP 36.1; O2SAT 96
[2024-11-25 14:49] VITALS: BP 126/92
== END 2024-11-25 15:13 | disposition home or self-care (01) ==
LOC: EN 11:28 → AC 11:29
PROVIDERS: Anesthesiology; PCP Internal Medicine; Referring Provider Internal Medicine; Visit Provider Internal Medicine Gastroenterology
PROC: 0DJD8ZZ Inspection of Lower Intestinal Tract, Via Natural or Artificial Opening Endoscopic (ICD-10-PCS; CPT 45378; principal; 2024-11-25 12:25)
DX: Z12.11 Encounter for screening for malignant neoplasm of colon (principal); Q43.8 Other specified congenital malformations of intestine; F32.A Depression, unspecified; F41.9 Anxiety disorder, unspecified; Z79.899 Other long term (current) drug therapy
CPT/HCPCS: 45378; 81025; J2405